=== PATIENT | female | born 1980 | race Caucasian/White ===

== ENCOUNTER 2016-07-26 09:12 | Emergency (ER) | payer OTHER ==
[2016-07-26 09:19] VITALS: TEMP 98.2; BMI 27.4
[2016-07-26 09:49] LABS: URINE APPEARANCE CLEAR; URINE BILIRUBIN NEGATIVE (NEGATIVE); URINE COLOR STRAW; URINE GLUCOSE (UA) NEGATIVE (NEGATIVE); URINE KETONE NEGATIVE (NEGATIVE); URINE LEUK ESTERASE NEGATIVE (NEGATIVE); URINE NITRITE NEGATIVE (NEGATIVE); URINE PROTEIN NEGATIVE (NEGATIVE); URINE UROBILINOGEN NEGATIVE E.U./dl (0.2-1.0)
--- NOTE | 2016-07-26 09:50 | PDOC ---
History of Present Illness <Basilio Hernandez - Last Filed: 07/26/16 11:24> - General History Source: Patient Exam Limitations: No Limitations - History of Present Illness Initial Comments: 07/26/16 10:26 The patient is a 35 year old female with no significant PMHx who presents to the ED with isolate fever (Tmax 103) yesterday, associated with nasal congestion and mild throat discomfort. The patient reports the fever resolving with Tylenol. There has been no further fever. She denies cough, abdominal pain , diarrhea. Patient also noted one episode yesterday of blueish bilateral hand discoloration associated with hands feeling cold. She states that she massaged her hands and the discoloration resolved after 30 minutes. She also reports urinary frequency without dysuria and very mild lower back discomfort for 1 day. She reports regular menstrual periods. She denies recent injuries or trauma to back. She denies recent STDs. She denies chest pain, SOB, headache, dizziness. She denies nausea, vomiting, diarrhea, constipation. She denies dysuria, urgency, hematuria. PCP: Dr. Morris <Alexia Lu - Last Filed: 07/26/16 11:33> - General Chief Complaint: Pain, Acute Stated Complaint: LOWER BACK PAIN Time Seen by Provider: 07/26/16 09:25 Past History - Past Medical History Other medical history: DENIES. - Psycho/Social/Smoking Cessation Hx Anxiety: No Suicidal Ideation: No Smoking History: Never smoked Hx Alcohol Use: No Drug/Substance Use Hx: No Substance Use Type: None <Basilio Hernandez - Last Filed: 07/26/16 11:24> <Alexia Lu - Last Filed: 07/26/16 11:33> - Past Medical History Allergies/Adverse Reactions: Allergies Allergy/AdvReac Type Severity Reaction Status Date / Time No Known Allergies Allergy Verified 07/26/16 09:14 Home Medications: Ambulatory Orders Ibuprofen 600 mg PO TID PRN #20 tablet 07/26/16 Review of Systems - Review of Systems Able to Perform ROS?: Yes Comments:: 07/26/16 10:26 CONSTITUTIONAL: Present: fever Absent: Chills, Diaphoresis, Generalized Weakness, Malaise, Loss of Appetite HEENT: Present: Nasal Congestion, mild throat discomfort Absent: Rhinorrhea,Throat Swelling, Difficulty Swallowing, Mouth Swelling, Ear Pain, Eye Pain, Visual Changes CARDIOVASCULAR: Absent: Chest Pain, Syncope, Palpitations, Irregular Heart Rate, Lightheadedness , Peripheral Edema RESPIRATORY: Absent: Cough, Shortness of Breath, SOB with Exertion, Orthopnea, Wheezing, Stridor, Hemoptysis GASTROINTESTINAL: Absent: Abdominal pain, Abdominal Distension, Nausea, Vomiting, Diarrhea, Constipation, Melena, Hematochezia GENITOURINARY: Present: frequency Absent: Dysuria, Urgency, Hesitancy, Colicy Flank Pain, Genital Pain MUSCULOSKELETAL: Present: back pain Absent: Myalgia, Arthralgia, Joint Swelling, Neck Pain SKIN: Present: bilateral hand discoloration, resolved Absent: Rash, Itching, Pallor HEMATOLOGIC/IMMUNOLOGIC: Absent: Easy Bleeding, Easy Bruising, Lymphadenopathy, Frequent infections ENDOCRINE: Absent: Unexplained Weight Gain, Unexplained Weight Loss, Heat Intolerance, Cold Intolerance NEUROLOGIC: Absent: Headache, Focal Weakness, Paresthesias, Vertigo, Lightheadedness, Unsteady Gait, Seizure, Mental Status Changes, Incontinence PSYCHIATRIC: Absent: Anxiety, Depression <Alexia Lu - Last Filed: 07/26/16 11:33> *Physical Exam - Vital Signs Last Vital Signs Temp Pulse Resp BP Pulse Ox 98.2 F 90 18 115/63 98 07/26/16 09:13 07/26/16 09:13 07/26/16 09:13 07/26/16 09:13 07/26/16 09:13 <Basilio Hernandez - Last Filed: 07/26/16 11:24> - Vital Signs Last Vital Signs Temp Pulse Resp BP Pulse Ox 98.2 F 90 18 115/63 98 07/26/16 09:13 07/26/16 09:13 07/26/16 09:13 07/26/16 09:13 07/26/16 09:13 - Physical Exam Comments: 07/26/16 10:27 GENERAL: The patient is awake, alert, and fully oriented, in no acute distress. HEAD: Normal with no signs of trauma. EYES: Pupils equal, round and reactive to light, extraocular movements intact, sclera anicteric, conjunctiva clear. ENT: Tonsils enlarged, with no exudates. Nasal membranes red and inflamed. Ears normal, Moist mucous membranes. NECK: Normal range of motion, supple without lymphadenopathy, JVD, or masses. LUNGS: Breath sounds equal, clear to auscultation bilaterally. No wheezes, and no crackles. HEART: Regular rate and rhythm, normal S1 and S2 without murmur, rub or gallop. ABDOMEN: Soft, nontender, normoactive bowel sounds. No guarding, no rebound. No masses. EXTREMITIES: Paraspinal tenderness. Radial and ulnar pulses intact. Dorsalis pedis pulses intact. Good circulation. Normal capillary refill, 1 second. Normal range of motion, no edema. No clubbing or cyanosis. No cords, erythema. NEUROLOGICAL: Cranial nerves II through XII grossly intact. Normal speech, normal gait. PSYCH: Normal mood, normal affect. SKIN: Warm, Dry, normal turgor, no rashes or lesions noted. Hands without discoloration. <Alexia Lu - Last Filed: 07/26/16 11:33> ED Treatment Course - LABORATORY CBC & Chemistry Diagram: 07/26/16 10:28 07/26/16 10:28 <Basilio Hernandez - Last Filed: 07/26/16 11:24> - LABORATORY CBC & Chemistry Diagram: 07/26/16 10:28 07/26/16 10:28 - ADDITIONAL ORDERS Additional order review: Laboratory Results 07/26/16 09:34 Urine Color Straw Urine Appearance Clear Urine pH 6.0 Ur Specific Wallace 1.005 Urine Protein Negative Urine Glucose (UA) Negative Urine Ketones Negative Urine Blood 1+ H Urine Nitrite Negative Urine Bilirubin Negative Urine Urobilinogen Negative Ur Leukocyte Esterase Negative Urine RBC 1 Urine WBC <1 Ur Epithelial Cells Rare Urine Bacteria Rare Urine HCG, Qual Negative <Alexia Lu - Last Filed: 07/26/16 11:33> Medical Decision Making - Medical Decision Making 07/26/16 11:25 Patient is a healthy 35-year-old woman who presents with an episode of blue discoloration of her fingers, hands feeling cold, lasting 30 minutes yesterday. Those symptoms all resolved with massage and warming up her hands. She has never before experienced Raynaud's phenomenon. Patient also complained of some urinary frequency without any dysuria. She also complained of some nasal congestion and throat discomfort with fever yesterday, resolved. No other symptoms of infection. Labs all reviewed. CBC is normal. Urinalysis with 1+ blood, but patient is just finishing her period. No signs of infection. Chemistries are notable for mildly low albumin at 3.3 with expected borderline low calcium given the albumin. Impression: Episode of Raynaud's phenomenon, resolved. Normal neurovascular examination at this time. Patient reassured regarding the benign nature of this condition. She has no associated collagen vascular history. Fever yesterday with mild URI symptoms. Examination notable for nasal congestion and mild tonsillar swelling. Symptoms consistent with viral URI, now resolving. The scribe's documentation has been prepared under my direction and personally reviewed by me in its entirety. I have confirmed that the note above accurately reflects all work, treatment, procedures, and medical decision- making performed by me. Laboratory Results - last 24 hr 07/26/16 07/26/16 07/26/16 09:34 10:28 10:28 WBC 9.1 RBC 4.42 Hgb 11.7 Hct 35.0 MCV 79.2 L MCHC 33.5 RDW 13.6 Plt Count 337 MPV 8.7 Neutrophils % 52.8 Lymphocytes % 32.2 Monocytes % 13.8 H Eosinophils % 0.6 Basophils % 0.6 Sodium 141 Potassium 3.7 Chloride 107 Carbon Dioxide 25 Anion Gap 9 BUN 6 L Creatinine 0.9 Creat Clearance w eGFR > 60 Random Glucose 87 Calcium 7.9 L Total Bilirubin 0.2 AST 20 ALT 26 Alkaline Phosphatase 84 Total Protein 6.9 Albumin 3.3 L Urine Color Straw Urine Appearance Clear Urine pH 6.0 Ur Specific Wallace 1.005 Urine Protein Negative Urine Glucose (UA) Negative Urine Ketones Negative Urine Blood 1+ H Urine Nitrite Negative Urine Bilirubin Negative Urine Urobilinogen Negative Ur Leukocyte Esterase Negative Urine RBC 1 Urine WBC <1 Ur Epithelial Cells Rare Urine Bacteria Rare Urine HCG, Qual Negative <Basilio Hernandez - Last Filed: 07/26/16 11:24> *DC/Admit/Observation/Transfer - Discharge Dispostion Admit: No <Basilio Hernandez - Last Filed: 07/26/16 11:24> - Attestations Scribe Attestion: 07/26/16 10:27 Documentation prepared by Alexia Lu, acting as medical housekeeper for Basilio Hernandez MD. <Alexia Lu - Last Filed: 07/26/16 11:33> Diagnosis at time of Disposition: Raynauds phenomenon Qualifiers: Raynaud?s-associated gangrene presence: without gangrene Qualified Code(s): I73.00 - Raynaud's syndrome without gangrene - Prescriptions Prescriptions: Ibuprofen 600 mg PO TID PRN #20 tablet PRN Reason: pain, fever, inflammation - Referrals Referrals: Deepika Morris MD [Primary Care Provider] - - Patient Instructions Printed Discharge Instructions: Raynauds Disease and Phenomenon Additional Instructions: You were evaluated today for an episode of blue hands. This is due to something called Raynaud's phenomenon. It is caused by spasm of the blood vessels. You can prevented by keeping her hands warm when the weather is cold. Try massage to help it resolve. Follow up with your primary care physician this week. Return to the emergency department for any severe symptoms. The blood and urine results were normal. There is no significant infection.
[2016-07-26 09:53] LABS: URINE BLOOD 1+ (NEGATIVE)
[2016-07-26 09:55] LABS: URINE BACTERIA RARE /hpf (NONE SEEN); URINE RBC 1 /hpf (0-3); URINE WBC <1 /hpf (3-5)
[2016-07-26 10:34] LABS: BASOPHIL 0.6 % (0-2.0); EOSINOPHIL 0.6 % (0-4.5); MCH 26.5 pg (25.7-33.7); MCHC 33.5 g/dl (32.0-36.0); MEAN CELL VOLUME 79.2 fl (80-96); MEAN PLT VOLUME 8.7 fl (7.5-11.1); NEUTROPHILS 52.8 % (42.8-82.8); PLATELET COUNT 337 K/MM3 (134-434); RDW 13.6 % (11.6-15.6); WHITE BLOOD COUNT 9.1 K/mm3 (4.0-10.0)
[2016-07-26 11:03] LABS: ALBUMIN 3.3 g/dl (3.4-5.0); ANION GAP 9 (8-16); BILIRUBIN,TOTAL 0.2 mg/dL (0.2-1.0); CALCIUM 7.9 mg/dL (8.5-10.1); CO2 25 mmol/L (21-32); CREATININE 0.9 mg/dL (0.55-1.02); GLUCOSE,RANDOM 87 mg/dL (74-106); SGOT/AST 20 U/L (15-37); SGPT/ALT 26 U/L (12-78); TOT PROT 6.9 g/dl (6.4-8.2)
[2016-07-26 11:04] LABS: ALK PHOS 84 U/L (45-117)
[2016-07-26 11:39] VITALS: BP 123/78; PULSE 72
== END 2016-07-26 11:39 | disposition home or self-care (01) ==
LOC: SUPCPDRO 09:12 → JER 09:12
DX: I73.00 Raynaud's syndrome without gangrene (principal)
CPT/HCPCS: 36415; 80053; 81003; 81015; 84703; 85025; 99282-25